=== PATIENT | male | born 1960 | race Caucasian/White ===

== ENCOUNTER 2021-01-30 19:18 | Inpatient (IN) ==
[2021-01-30] MEDS ORDERED: SODIUM CHLORIDE 0.9% 1000ML 2,000 ML IV ONE (19:26)
[2021-01-30] MEDS ORDERED: OPTIRAY 350 500ml IV ONE (19:46)
[2021-01-30 19:47] LABS: Hematocrit (blood only) 41.4 % (42-52); Hemoglobin 14.4 g/dL (14.0-18.0); Mean Corpuscular Hgb Conc 34.8 g/dL (32-36); Mean Corpuscular Volume 86.3 fL (80-100); Mean Platelet Volume 10.2 fL (7.4-10.4); Platelet Count 272 K/uL (130-400); RDW Coefficient of Variation 12.6 % (11.5-14.5); RDW Standard Deviation 40.3 fL (36.4-46.3); White Blood Count 7.33 K/uL (4.8-10.8)
[2021-01-30 19:58] LABS: Base Excess VBG -3.8 mEq/L; Oxygen Saturation VBG 77.4 %; pH VBG 7.4 (7.36-7.41)
[2021-01-30 20:02] LABS: INR 1.1 (0.9-1.1); Partial Thromboplastin Ratio 0.8; Prothrombin Time 11.4 Seconds (9.0-12.0)
--- NOTE | 2021-01-30 20:04 | CT Scan Report ---
CT OF THE HEAD WITHOUT CONTRAST CLINICAL HISTORY: syncope hit head COMPARISON STUDY: No previous studies for comparison. TECHNIQUE: Helical axial images of the head were obtained without IV contrast. Automated exposure con trol was utilized for the study. A dose lowering technique was utilized adhering to the principles o f ALARA. FINDINGS: No acute intracranial hemorrhage, midline shift or mass effect is present. The ventricular system is unremarkable. The basal cisterns are patent. No extra-axial collections are present. There are no findings to suggest acute dural sinus thrombosis or acute territorial infarct. No significant calvarial abnormalities are present. Mild ethmoid sinus mucosal thickening is noted. There is a proba ble incomplete arch of C1, incompletely imaged on this exam. IMPRESSION: 1. No acute intracranial findings. 2. No calvarial fracture. ACT 112: Negative or not required by law. Electronically signed by: Harinder Gaviria M.D. 01/30/2021 8:03 PM
--- NOTE | 2021-01-30 20:09 | Emergency Department Note ---
History of Present Illness General Chief complaint: Unresponsive Stated complaint: unresponsive Source: patient and family () History of Present Illness Provider complaint: Unresponsive episode Onset (ago): hour(s) 1 Location: head Associated symptoms: + confusion, + headaches and + syncope; no chest pain, no diaphoresis, no fever/chills, no nausea/vomiting and no shortness of breath 60-year-old male presents emergency department with for unresponsive episode. states that the patient was at a graduation [employer] for their son. She states that approxi-1 hour ago the patient was having his second alcoholic beer of the evening when he suddenly became very thirsty and then passed out. The patient's states that the patient he did hit his head. The states that in route to the hospital he passed out again. Patient is not on any blood thinners. Patient has no cardiac history. No history of seizure disorder. The patient's states that this happened once before when they were in [place] and he had a multitude of tests done including EEG and tomorrow cardiac cath which were negative. Home Medications Medication Instructions Recorded Confirmed Type multivitamin 1 tab PO DAILY 01/30/21 01/30/21 History psyllium husk [Metamucil] 1 tsp PO DAILY 01/30/21 01/30/21 History Allergies Allergy/AdvReac Type Severity Reaction Status Date / Time No Known Allergies Allergy Verified 01/30/21 20:01 Past Med/Surg History Medical History (Updated 01/30/21 @ 21:58 by Edgar Pace) HLD (hyperlipidemia) No pertinent family history Surgical History (Updated 01/30/21 @ 20:08 by Edgar Pace) No pertinent past surgical history Social History Preferred Language: Greek Feels Safe at Home: Yes Review of Systems A total of 10 systems reviewed and were otherwise negative Physical Exam Vital Signs Vital Signs - 24 hr 01/30/21 19:28 01/30/21 19:30 01/30/21 20:00 Temperature 36.2 C L Temperature Source Oral Pulse Rate 92 H 79 87 Pulse Rate from SpO2 Sensor 79 87 Pulse Rhythm Regular Pulse Strength Normal Respiratory Rate 18 19 15 Respiratory Effort / Characteristics Non-Labored Spontaneous Respiratory Depth Normal Respiratory Pattern Regular Blood Pressure 124/64 123/78 128/74 Blood Pressure Mean 84 93 92 Blood Pressure Position Lying Pulse Oximetry 93 96 95 Oxygen Delivery Method Room Air Room Air Room Air Sepsis Recent Fever Within 48 Hours No Sepsis New/Unexplained Change in Mental Status Yes Sepsis Action Taken by Nursing No Action Required 01/30/21 20:19 01/30/21 20:20 01/30/21 20:30 Temperature 36.7 C Temperature Source Oral Pulse Rate 99 H 92 H Pulse Rate from SpO2 Sensor 98 H 92 H Pulse Rhythm Pulse Strength Respiratory Rate 14 15 Respiratory Effort / Characteristics Respiratory Depth Respiratory Pattern Blood Pressure 118/72 118/76 Blood Pressure Mean 87 90 Blood Pressure Position Pulse Oximetry 97 99 Oxygen Delivery Method Room Air Room Air Sepsis Recent Fever Within 48 Hours Sepsis New/Unexplained Change in Mental Status Sepsis Action Taken by Nursing 01/30/21 20:46 01/30/21 21:30 Temperature Temperature Source Pulse Rate 90 86 Pulse Rate from SpO2 Sensor 90 85 Pulse Rhythm Pulse Strength Respiratory Rate 17 16 Respiratory Effort / Characteristics Respiratory Depth Respiratory Pattern Blood Pressure 124/78 139/80 Blood Pressure Mean 93 99 Blood Pressure Position Pulse Oximetry 98 94 Oxygen Delivery Method Sepsis Recent Fever Within 48 Hours Sepsis New/Unexplained Change in Mental Status Sepsis Action Taken by Nursing Physical Exam GENERAL: He is oriented to person, place, and time. He appears well-developed and well-nourished. He does not appear distressed. HENT: Exam performed. - Head: Normocephalic and atraumatic. - Right Ear: External ear normal. No mastoid tenderness. - Left Ear: External ear normal. No mastoid tenderness. - Mouth/Throat: The oropharynx is clear and moist. No trismus in the jaw. No dental abscesses or uvula swelling. No oropharyngeal exudate or tonsillar abscesses. EYES: Conjunctivae and EOM are normal. Pupils are equal, round, and reactive to light. Right eye exhibits no discharge. Left eye exhibits no discharge. No scleral icterus. NECK: Normal range of motion. Neck supple. No JVD present. No spinous process tenderness present. No carotid bruit present. No rigidity. No tracheal deviation and normal range of motion present. No Brudzinski's sign and no Kernig's sign noted. CV: Normal rate, regular rhythm, normal heart sounds and intact distal pulses. There is no peripheral edema. Palpable radial pulses bue. PULM/CHEST: Effort normal and breath sounds normal. No respiratory distress. No stridor. He has no wheezes. He has no rales. - Chest Wall: He exhibits no tenderness. ABD: The abdomen is soft. Bowel sounds are normal. He has no distension. No mass is present. There is no tenderness. There is no rebound, no guarding, no Leon's sign and no tenderness at McBurney's point. Rovsig negative. MUSC/SKEL: Normal range of motion. There is no peripheral edema, tenderness or deformity. LYMPH: No cervical adenopathy. NEURO: He is alert and oriented to person, place, and time. He has normal strength. No cranial nerve deficit or sensory deficit. Coordination and gait normal. GCS eye subscore is 4. GCS verbal subscore is 5. GCS motor subscore is 6. Cerebellar tests wnl. SKIN: Skin is warm and dry. He is not diaphoretic. PSYCH: He has a normal mood and affect. Behavior is normal. Judgment and thought content normal. Course Course 1914: Received a call from EMS stating that the patient came in with 2 syncopal episodes. Per EMS the patient's blood pressure was in the systolic 50s. IV fluids were ordered to be administered by EMS. 1917: The patient was evaluated in room A1. A complete history and physical exam was performed Cardiac monitoring: An order was placed for continuous cardiac monitoring. The monitor shows a rate of 90 with sinus rhythm E fast negative. Patient's blood pressure stable. 2 L IV fluid started on the patient. 2150: Vital signs stable. Labs show a potassium of 3.2. Potassium replaced in the emergency department. Lactic acid is elevated at 4.3. Patient is afebrile with no leukocytosis. Is not thought that the patient is suffering from any infection. Given the patient's symptoms it is thought that he could be suffering from a seizure. Imaging within normal limits. mentioned that the patient has been worked up for MS in the past. I discussed the case with the [facility] hospitalist Dr. Patel and her team. Her team was able to access the records from [facility]. Approximately 5 years ago, the patient had a similar episode of syncope and had an MRI done which showed possible lesions concerning for MS. The patient was eventually cleared of having MS however the notes stated that if the patient had further neurological symptoms that a repeat MRI and MRIs should be reconsidered. We will admit the patient to the [facility]. I did discuss the plan with the patient and his at bedside who are in agreement to be admitted. Administered Medications Discontinued Medications Sodium Chloride (Nss 1000ml) 2,000 mls @ 999 mls/hr IV .Q2H1M ONE Stop: 01/30/21 21:26 Last Admin: 01/30/21 19:30 Dose: 999 mls/hr Documented by: [id number] Ioversol (Optiray 350 500ml) 124 ml IV ONCE ONE Stop: 01/30/21 19:47 Last Admin: 01/30/21 19:48 Dose: 124 ml Documented by: [id number] Ondansetron HCl (Ondansetron Inj 2 Mg/Ml 2 Ml Vial) 4 mg IV NOW STA Stop: 01/30/21 20:24 Last Admin: 01/30/21 20:31 Dose: 4 mg Documented by: [id number] Medical Decision Making Laboratory Data Result diagrams: 01/30/21 19:20 01/30/21 19:20 Lab Results 01/30/21 01/30/21 01/30/21 Range/Units 19:00 19:20 19:20 WBC 7.33 (4.8-10.8) K/uL RBC 4.80 (4.7-6.1) M/uL Hgb 14.4 (14.0-18.0) g/dL Hct 41.4 L (42-52) % MCV 86.3 (80-100) fL MCH 30.0 (25-34) pg MCHC 34.8 (32-36) g/dL RDW Std Deviation 40.3 (36.4-46.3) fL RDW Coeff of Debo 12.6 (11.5-14.5) % Plt Count 272 (130-400) K/uL MPV 10.2 (7.4-10.4) fL Immature Gran % (Auto) 0.3 % Neut % (Auto) 40.4 % Lymph % (Auto) 54.4 % [place] % (Auto) 4.5 % Eos % (Auto) 0.3 % Baso % (Auto) 0.1 % Neut # (Auto) 2.96 (1.4-6.5) K/uL Lymph # (Auto) 3.99 H (1.2-3.4) K/uL [place] # (Auto) 0.33 (0.11-0.59) K/uL Eos # (Auto) 0.02 (0-0.5) K/uL Baso # (Auto) 0.01 (0-0.2) K/uL Immature Gran # (Auto) 0.02 (0.00-0.02) K/uL Echinocytes 1+ PT 11.4 (9.0-12.0) Seconds INR 1.1 (0.9-1.1) APTT 22.0 (21.0-31.0) Seconds PTT Ratio 0.8 VBG pH (7.36-7.41) VBG pCO2 (38-50) mmHg VBG pO2 mmHg VBG HCO3 mmol/L VBG O2 Saturation % VBG Base Excess mEq/L Barometric Pressure mm/Hg Sodium (136-145) mmol/L Potassium (3.5-5.1) mmol/L Chloride (98-107) mmol/L Carbon Dioxide (21-32) mmol/L Anion Gap (3-11) BUN (7-18) mg/dl Creatinine (0.6-1.4) mg/dl Est Cr Clr Drug Dosing ml/min Est GFR ( Amer) Est GFR (Non-Af Amer) BUN/Creatinine Ratio (10-20) Glucose (70-99) mg/dl Lactate (0.4-2.0) mmol/L Calcium (8.5-10.1) mg/dl Total Bilirubin (0.2-1) mg/dl Direct Bilirubin (0-0.2) mg/dl AST (15-37) U/L ALT (12-78) U/L Alkaline Phosphatase (45-117) U/L Troponin I (0-0.045) ng/ml Total Protein (6.4-8.2) gm/dl Albumin (3.4-5.0) gm/dl Lipase (73-393) U/L Procalcitonin < 0.05 (0-0.5) ng/ml Urine Opiates Screen (Neg) Ur Methadone, Qual (Neg) Urine Barbiturates (Neg) Ur Phencyclidine (PCP) (Neg) U Amphetamin/Meth Scrn (Neg) MDMA (Ecstasy) Screen (Neg) U Benzodiazepines Scrn (Neg) Ur Cocaine Metabolite (Neg) U Marijuana (THC) Screen (Neg) Ethyl Alcohol mg/dL (0-3) mg/dl COVID-19 Eval Order 01/30/21 01/30/21 01/30/21 Range/Units 19:20 19:20 19:27 WBC (4.8-10.8) K/uL RBC (4.7-6.1) M/uL Hgb (14.0-18.0) g/dL Hct (42-52) % MCV (80-100) fL MCH (25-34) pg MCHC (32-36) g/dL RDW Std Deviation (36.4-46.3) fL RDW Coeff of Debo (11.5-14.5) % Plt Count (130-400) K/uL MPV (7.4-10.4) fL Immature Gran % (Auto) % Neut % (Auto) % Lymph % (Auto) % [place] % (Auto) % Eos % (Auto) % Baso % (Auto) % Neut # (Auto) (1.4-6.5) K/uL Lymph # (Auto) (1.2-3.4) K/uL [place] # (Auto) (0.11-0.59) K/uL Eos # (Auto) (0-0.5) K/uL Baso # (Auto) (0-0.2) K/uL Immature Gran # (Auto) (0.00-0.02) K/uL Echinocytes PT (9.0-12.0) Seconds INR (0.9-1.1) APTT (21.0-31.0) Seconds PTT Ratio VBG pH (7.36-7.41) VBG pCO2 (38-50) mmHg VBG pO2 mmHg VBG HCO3 mmol/L VBG O2 Saturation % VBG Base Excess mEq/L Barometric Pressure mm/Hg Sodium 142 (136-145) mmol/L Potassium 3.2 L (3.5-5.1) mmol/L Chloride 109 H (98-107) mmol/L Carbon Dioxide 25 (21-32) mmol/L Anion Gap 8.0 (3-11) BUN 19 H (7-18) mg/dl Creatinine 1.14 (0.6-1.4) mg/dl Est Cr Clr Drug Dosing 81.8 ml/min Est GFR ( Amer) 81.1 Est GFR (Non-Af Amer) 70.0 BUN/Creatinine Ratio 16.8 (10-20) Glucose 162 H (70-99) mg/dl Lactate 4.3 H* (0.4-2.0) mmol/L Calcium 8.6 (8.5-10.1) mg/dl Total Bilirubin 0.2 (0.2-1) mg/dl Direct Bilirubin < 0.1 (0-0.2) mg/dl AST 18 (15-37) U/L ALT 29 (12-78) U/L Alkaline Phosphatase 68 (45-117) U/L Troponin I < 0.015 (0-0.045) ng/ml Total Protein 7.2 (6.4-8.2) gm/dl Albumin 3.6 (3.4-5.0) gm/dl Lipase 172 (73-393) U/L Procalcitonin (0-0.5) ng/ml Urine Opiates Screen (Neg) Ur Methadone, Qual (Neg) Urine Barbiturates (Neg) Ur Phencyclidine (PCP) (Neg) U Amphetamin/Meth Scrn (Neg) MDMA (Ecstasy) Screen (Neg) U Benzodiazepines Scrn (Neg) Ur Cocaine Metabolite (Neg) U Marijuana (THC) Screen (Neg) Ethyl Alcohol mg/dL 20.0 H (0-3) mg/dl COVID-19 Eval Order 01/30/21 01/30/21 01/30/21 Range/Units 19:35 19:35 21:40 WBC (4.8-10.8) K/uL RBC (4.7-6.1) M/uL Hgb (14.0-18.0) g/dL Hct (42-52) % MCV (80-100) fL MCH (25-34) pg MCHC (32-36) g/dL RDW Std Deviation (36.4-46.3) fL RDW Coeff of Debo (11.5-14.5) % Plt Count (130-400) K/uL MPV (7.4-10.4) fL Immature Gran % (Auto) % Neut % (Auto) % Lymph % (Auto) % [place] % (Auto) % Eos % (Auto) % Baso % (Auto) % Neut # (Auto) (1.4-6.5) K/uL Lymph # (Auto) (1.2-3.4) K/uL [place] # (Auto) (0.11-0.59) K/uL Eos # (Auto) (0-0.5) K/uL Baso # (Auto) (0-0.2) K/uL Immature Gran # (Auto) (0.00-0.02) K/uL Echinocytes PT (9.0-12.0) Seconds INR (0.9-1.1) APTT (21.0-31.0) Seconds PTT Ratio VBG pH 7.40 (7.36-7.41) VBG pCO2 33 L (38-50) mmHg VBG pO2 43 mmHg VBG HCO3 20 mmol/L VBG O2 Saturation 77.4 % VBG Base Excess -3.8 mEq/L Barometric Pressure 730.8 mm/Hg Sodium (136-145) mmol/L Potassium (3.5-5.1) mmol/L Chloride (98-107) mmol/L Carbon Dioxide (21-32) mmol/L Anion Gap (3-11) BUN (7-18) mg/dl Creatinine (0.6-1.4) mg/dl Est Cr Clr Drug Dosing ml/min Est GFR ( Amer) Est GFR (Non-Af Amer) BUN/Creatinine Ratio (10-20) Glucose (70-99) mg/dl Lactate (0.4-2.0) mmol/L Calcium (8.5-10.1) mg/dl Total Bilirubin (0.2-1) mg/dl Direct Bilirubin (0-0.2) mg/dl AST (15-37) U/L ALT (12-78) U/L Alkaline Phosphatase (45-117) U/L Troponin I (0-0.045) ng/ml Total Protein (6.4-8.2) gm/dl Albumin (3.4-5.0) gm/dl Lipase (73-393) U/L Procalcitonin (0-0.5) ng/ml Urine Opiates Screen Neg (Neg) Ur Methadone, Qual Neg (Neg) Urine Barbiturates Neg (Neg) Ur Phencyclidine (PCP) Neg (Neg) U Amphetamin/Meth Scrn Neg (Neg) MDMA (Ecstasy) Screen Neg (Neg) U Benzodiazepines Scrn Neg (Neg) Ur Cocaine Metabolite Neg (Neg) U Marijuana (THC) Screen Neg (Neg) Ethyl Alcohol mg/dL (0-3) mg/dl COVID-19 Eval Order [facility]FluRsv at [facility] Imaging Data Radiologist's Impression: Abdomen/Pelvis CTA 01/30/21 19:26 CT ANGIOGRAPHY OF THE ABDOMEN AND PELVIS CLINICAL HISTORY: Abdominal pain. Syncope. Evaluate for dissection. COMPARISON STUDY: No previous studies for comparison. TECHNIQUE: Helical axial images of the abdomen and pelvis were obtained during arterial phase following intravenous injection of 124 cc Optiray 320 IV. Sagittal and coronal reconstructions were viewed as well as maximal intensity p rojections on an independent 3-D workstation. Automated exposure control was utilized for the study. A dose lowering technique was utilized adhering to the principles of ALARA. FINDINGS: No pneumatosis, free air or portal venous gas is present. Stomach is distended with ingested contents. Arterial phase images of the liver, spleen, adrenal glands, kidneys and pancreas are unremarkable. There is no biliary or pancreatic ductal dilatation. There is no peripancreatic or pericholecystic infiltration. There is no hydronephrosis. The appendix is normal. There is a moderate amount of stool within the colon and rectum. There is no evidence for a bowel obstruction. No ascites is present. There is no lymphadenopathy. The caliber of the abdominal aorta is normal. There is minimal atherosclerotic plaque of the abdominal aorta as well as the branch vessels. There is no diss ection. The branch vessels are patent. Small fat-containing bilateral inguinal hernias are present. IMPRESSION: 1. Normal caliber abdominal aorta. Mild atherosclerotic plaque. No dissection. Patent vessels. 2. No acute process within the abdomen or pelvis on arterial phase exam. 3. Moderate amount of stool within the colon and rectum. No bowel obstruction. No bowel wall thickening. 4. Distended stomach containing ingested contents. ACT 112: Negative or not required by law. Electronically signed by: Harinder Gaviria M.D. 01/30/2021 8:18 PM Chest CTA 01/30/21 19:26 CT ANGIOGRAPHY OF THE CHEST DISSECTION PROTOCOL CLINICAL HISTORY: Syncope. Evaluate for dissection. COMPARISON STUDY: No previous studies for comparison. TECHNIQUE: Before and following the IV administration of 124 mL of Optiray, h elical axial images of the chest were obtained. Maximal intensity projections and sagittal and coronal reformats were viewed on an independent 3D workstation. IV contrast was administered without complication. Automated exposure control was utilized for the study. A dose lowering technique was utilized adhering to the principles of ALARA. CT DOSE: 3266.10 mGy.cm FINDINGS: Caliber of the thoracic aorta is normal. There is no intramural thaddeus efraín or thoracic aortic dissection. Cardiac size is at the upper limits of normal. No enlarged thoracic lymph nodes are noted. There are several calcified mediastinal and right hilar lymph nodes. No central pulmonary embolus is noted. There is no consolidation to suggest pneumonia. No pneumothorax or pleural effusion is noted. Abdomen and pelvis will be reported separately. IMPRESSION: 1. No thoracic aortic dissection. 2. No acute process within the chest. ACT 112: Negative or not required by law. Electronically signed by: Harinder Gaviria M.D. 01/30/2021 8:[address] 01/30/21 19:27 CT OF THE HEAD WITHOUT CONTRAST CLINICAL HISTORY: syncope hit head COMPARISON STUDY: No previous studies for comparison. TECHNIQUE: Helical axial images of the head were obtained without IV contrast. Automated exposure control was utilized for the study. A dose lowering technique was utilized adhering to the principles of ALARA. FINDINGS: No acute intracranial hemorrhage, midline shift or mass effect is present. The ventricular system is unremarkable. The basal cisterns are patent. No extra-axial collections are present. There are no findings to suggest acute dural sinus thrombosis or acute territorial infarct. No significant calvarial abnormalities are present. Mild ethmoid sinus mucosal thickening is noted. There is a probable incomplete arch of C1, incompletely imaged on this exam. IMPRESSION: 1. No acute intracranial findings. 2. No calvarial fracture. ACT 112: Negative or not required by law. Electronically signed by: Harinder Gaviria M.D. 01/30/2021 8:03 PM ECG Data Indication: + altered mental status Rate (beats per minute): 77 Rhythm: + normal sinus ECG Intervals/blocks: + Normal QRS, + Normal GA and + Normal QT-c ECG ST segments: + Normal ST segments MDM Narrative 1914: Received a call from EMS stating that the patient came in with 2 syncopal episodes. Per EMS the patient's blood pressure was in the systolic 50s. IV fluids were ordered to be administered by EMS. 1917: The patient was evaluated in room A1. A complete history and physical exam was performed Cardiac monitoring: An order was placed for continuous cardiac monitoring. The monitor shows a rate of 90 with sinus rhythm E fast negative. Patient's blood pressure stable. 2 L IV fluid started on the patient. 2150: Vital signs stable. Labs show a potassium of 3.2. Potassium replaced in the emergency department. Lactic acid is elevated at 4.3. Patient is afebrile with no leukocytosis. Is not thought that the patient is suffering from any infection. Given the patient's symptoms it is thought that he could be sufferin g from a seizure. Imaging within normal limits. mentioned that the patient has been worked up for MS in the past. I discussed the case with the [facility] hospitalist Dr. Patel and her team. Her team was able to access the records from [facility]. Approximately 5 years ago, the patient had a similar episode of syncope and had an MRI done which showed possible lesions concerning for MS. The patient was eventually cleared of having MS however the notes stated that if the patient had further neurological symptoms that a repeat MRI and MRIs should be reconsidered. We will admit the patient to the hospital tonight. I did discuss the plan with the patient and his at bedside who are in agreement to be admitted. Impression & Plan Syncope, Seizure-like activity, CHI (closed head injury) Discharge Plan Visit Data Chief Complaint: Unresponsive Stated Complaint: unresponsive ED Provider: Edgar Pace Discharge Problem: Syncope, Seizure-like activity, CHI (closed head injury) Patient Disposition: Being Evaluated by Hospitalist Forms Stand Alone Forms: [facility] Prescriptions Prescriptions: No Action multivitamin Tablet 1 tab PO DAILY RF: 0 Metamucil 3.4 gram/5.4 gram Powder 1 tsp PO DAILY RF: 0 Referrals Referrals: SOREN MOLINA [Other] Discharge Problem: Syncope Qualifiers: Syncope type: unspecified Qualified Code(s): R55 - Syncope and collapse CHI (closed head injury) Qualifiers: Encounter type: initial encounter Qualified Code(s): S09.90XA - Unspecified injury of head, initial encounter
[2021-01-30 20:13] LABS: Alanine Aminotransferase 29 U/L (12-78); Albumin Level 3.6 gm/dl (3.4-5.0); BUN Creatinine Ratio 16.8 (10-20); Bilirubin Direct < 0.1 mg/dl (0-0.2); Blood Urea Nitrogen 19 mg/dl (7-18); Calcium 8.6 mg/dl (8.5-10.1); Carbon Dioxide 25 mmol/L (21-32); Chloride 109 mmol/L (98-107); Creatinine Clr Calc Pharmacy 81.8 ml/min; Est GFR (African American) 81.1; Glucose 162 mg/dl (70-99); Lipase 172 U/L (73-393); Potassium 3.2 mmol/L (3.5-5.1); Sodium 142 mmol/L (136-145)
--- NOTE | 2021-01-30 20:14 | CT Scan Report ---
CT ANGIOGRAPHY OF THE CHEST DISSECTION PROTOCOL CLINICAL HISTORY: Syncope. Evaluate for dissection. COMPARISON STUDY: No previous studies for comparison. TECHNIQUE: Before and following the IV administration of 124 mL of Optiray, helical axial images of t he chest were obtained. Maximal intensity projections and sagittal and coronal reformats were viewed on an independent 3D workstation. IV contrast was administered without complication. Automated exp osure control was utilized for the study. A dose lowering technique was utilized adhering to the saul Frankel. CT DOSE: 3266.10 mGy.cm FINDINGS: Caliber of the thoracic aorta is normal. There is no intramural hematoma or thoracic aorti c dissection. Cardiac size is at the upper limits of normal. No enlarged thoracic lymph nodes are not ed. There are several calcified mediastinal and right hilar lymph nodes. No central pulmonary embolus is noted. There is no consolidation to suggest pneumonia. No pneumothorax or pleural effusion is not ed. Abdomen and pelvis will be reported separately. IMPRESSION: 1. No thoracic aortic dissection. 2. No acute process within the chest. ACT 112: Negative or not required by law. Electronically signed by: Harinder Gaviria M.D. 01/30/2021 8:12 PM
[2021-01-30 20:18] LABS: Alkaline Phosphatase 68 U/L (45-117); Aspartate Aminotransferase 18 U/L (15-37); Bilirubin,Total 0.2 mg/dl (0.2-1); Total Protein 7.2 gm/dl (6.4-8.2); Troponin I < 0.015 ng/ml (0-0.045)
--- NOTE | 2021-01-30 20:20 | CT Scan Report ---
CT ANGIOGRAPHY OF THE ABDOMEN AND PELVIS CLINICAL HISTORY: Abdominal pain. Syncope. Evaluate for dissection. COMPARISON STUDY: No previous studies for comparison. TECHNIQUE: Helical axial images of the abdomen and pelvis were obtained during arterial phase followi ng intravenous injection of 124 cc Optiray 320 IV. Sagittal and coronal reconstructions were viewed a s well as maximal intensity projections on an independent 3-D workstation. Automated exposure control was utilized for the study. A dose lowering technique was utilized adhering to the principles of [place] JERRY. FINDINGS: No pneumatosis, free air or portal venous gas is present. Stomach is distended with ingeste d contents. Arterial phase images of the liver, spleen, adrenal glands, kidneys and pancreas are unre markable. There is no biliary or pancreatic ductal dilatation. There is no peripancreatic or perichol ecystic infiltration. There is no hydronephrosis. The appendix is normal. There is a moderate amount of stool within the colon and rectum. There is no evidence for a bowel obstruction. No ascites is pre sent. There is no lymphadenopathy. The caliber of the abdominal aorta is normal. There is minimal ath erosclerotic plaque of the abdominal aorta as well as the branch vessels. There is no dissection. The branch vessels are patent. Small fat-containing bilateral inguinal hernias are present. IMPRESSION: 1. Normal caliber abdominal aorta. Mild atherosclerotic plaque. No dissection. Patent vessels. 2. No acute process within the abdomen or pelvis on arterial phase exam. 3. Moderate amount of stool within the colon and rectum. No bowel obstruction. No bowel wall thickeni ng. 4. Distended stomach containing ingested contents. ACT 112: Negative or not required by law. Electronically signed by: Harinder Gaviria M.D. 01/30/2021 8:18 PM
[2021-01-30] MEDS ORDERED: ONDANSETRON INJ 2 MG/ML 2 ML VIAL IV STA (20:23)
[2021-01-30 20:24] LABS: Amphetamines+Metham, Urine Neg (Neg); Barbiturates, Urine Neg (Neg); Benzodiazepine, Urine Neg (Neg); Cocaine, Urine Neg (Neg); MDMA (Ecstacy), Urine Neg (Neg); Methadone, Urine Neg (Neg); Opiate, Urine Neg (Neg); Phencyclidine, Urine Neg (Neg)
[2021-01-30 20:33] LABS: Basophils # (auto) 0.01 K/uL (0-0.2); Basophils % (auto) 0.1 %; Echinocytes 1+; Eosinophils # (auto) 0.02 K/uL (0-0.5); Eosinophils % (auto) 0.3 %; Immature Granulocytes # (auto) 0.02 K/uL (0.00-0.02); Immature Granulocytes % (auto) 0.3 %; Lymphocytes # (auto) 3.99 K/uL (1.2-3.4); Lymphocytes % (auto) 54.4 %; Monocytes # (auto) 0.33 K/uL (0.11-0.59); Monocytes % (auto) 4.5 %; Neutrophils # (auto) 2.96 K/uL (1.4-6.5); Neutrophils % (auto) 40.4 %
[2021-01-30] MEDS ORDERED: POTASSIUM CHLORIDE 10 MEQ TABCR PO STA (21:51)
--- NOTE | 2021-01-30 22:15 | History & Physical Report ---
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 He is now hemodynamically stable. 1. Syncopal episode Clinically, patient reported being at dinner and was sitting down when he began feeling dizzy and extremely thirsty; thereafter lost consciousness and hit his head (while standing) Patient noted to have a very similar episode in approximately 2014 that occurred in [place] Work-up as follows: Upon EMS arrival, was found to be profoundly hypotensive with systolics in the 50s; upon his arrival to the ED, his systolics were noted in the 70s. Head CT without acute intracranial process Chest CTA and abdominal pelvic CTA without focal or vascular abnormalities CBC without anemia BMP notable for mild hypokalemia to 3.2 Lactate noted at 2.5 in setting of profound hypotension ECG revealing of NSR, but nonspecific ST changes in the inferolateral leads Troponin upon arrival under 0.015 Serum alcohol level 20, otherwise UDS unremarkable Multiple cerebral demyelinating lesions per 2016 MRI, as below, and vicinities consistent with radiologic MS Etiology at this time is not clear, but differential includes profound vagal response, dysautonomia potentially secondary to progressing MS, cardiogenic etiology, vascular insufficiency MRI brain with and without contrast, MS protocol given known history of demyelinating lesions Consult neurology, as below Trend troponin --in setting of profound hypotension, certainly this may return elevated to some degree Bilateral carotid duplex to rule out insufficiency A.m. cortisol given profound hypotension Patient has son's graduation at 6 PM tomorrow Continuous cardiac monitoring 2. Hypotension -- resolved at present Patient found to have systolics within the 50 range upon EMS arrival; SBP in 70s upon arrival to the hospital after fluid bolus Received total of 3 L of normal saline with return to normotension CTA chest, abdominal/pelvis unrevealing for acute vascular process or hemorrhage As above, etiology of this remains somewhat unclear: May represent vasovagal response, dysautonomia, cardiogenic source Nontoxic appearing, afebrile, no leukocytosis, recent illnesses on history Continue to monitor while here, work-up as above Echo, continuous cardiac monitoring as above Consider 1 L fluid boluses as needed for pressures under 90/60 or MAP under 65 3. Cerebral demyelinating lesions During work-up for syncopal episode in 2014, patient did undergo MRI of the brain, which showed multiple demyelinating lesions within the cerebrum -- "multiple ovoid shaped FLAIR hyperintense white matter lesions throughout the supratentorial brain, predominantly involving the callosal/pericallosal, juxtacortical, and periventricular regions. The lesions are unchanged in size and number since 07/09/2015. No abnormal enhancement. No restricted diffusion. No intraparenchymal hemorrhage." // Previous neurologist remarked that there were 7-8 total demyelinating lesions at that time concerning for MS. Patient was followed by [facility] neurology for further work-up of this Unclear whether or not syncopal episode ,as above, may be related -- ?dysautonomia 2/2 progression of disease Repeat MRI Brain, MS Protocol, with and without contrast Consult neurology, as above Continue multivitamin, consider addition of biotin Code: Full code PPx: SCDs Diet: Regular Dispo: MedSurg with telemetry (2) CHI (closed head injury): (3) HLD (hyperlipidemia): (4) Demyelinating lesion: History of Present Illness Primary Care Provider: SOREN Jasmine is a 60-year-old male with a notable past medical history of multiple demyelinating cerebral lesions discovered after syncopal event in 2014 and hyperlipidemia who presents to [facility] following an episode of nonresponsiveness and hypotension that occurred while at a graduation constitution party for their son. Per patient and report, he was in his normal health up until this event. At the graduation constitution party, he had approximately 2 beers and was eating a steak sandwich. 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 He then passed out. Hit his head on the way down. When he did begin "coming out of it", notes that he did say that he was having trouble breathing. Although he is not completely able to recollect the story, he denies that there is any chest pain around this time. similar does not remember him saying anything about a pressure in his chest or pain. There is no evidence of generalized shaking or seizure-like activity. There is no tongue biting or loss of bowel or bladder control. Patient notes that there was nothing out of the ordinary that occurred today. He attended his son's graduation earlier in the afternoon. He continued to eat and consume liquids as he normally does. He denies any illness like symptoms occurring recently. Denies any new medications or use of illicit drugs. Upon EMS arrival, he he was noted to be more responsive, but with systolics in the 50s. Fluid was administered in route. In the ED, patient was found to be hypotensive to the systolic range of 70s over 50s. He was noted to have a hypokalemia to 3.2, but otherwise no significant electrolyte abnormalities. Ethyl alcohol level of 20. He was noted to have a lactate of 2.5 in the setting of this hypotension. No signs of anemia. Head CT and chest CTA without acute processes or vascular insult. Abdominal CTA similarly without acute processes. After an additional 2-3 fluid boluses, his blood pressures returned to the 120/80 range. Of note, patient has followed with [facility] neurology in the past. He was noted to have a syncopal event in December 2014, where after a brain MRI was obtained; his neurologist remarked that there were 7-8 demyelinating lesions concerning for MS. 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 His last MRI in 2017 did demonstrate "multiple ovoid shaped FLAIR hyperintense white matter lesions throughout the supratentorial brain, predominantly involving the callosal/pericallosal, juxtacortical, and periventricular regions. The lesions are unchanged in size and number since 07/09/2015. No abnormal enhancement. No restricted diffusion. No intraparenchymal hemorrhage." Further, patient's does report that when they lived in [place], he underwent an extensive cardiac/neurologic work-up for evaluation of the syncopeincluding EEG, cardiac catheterization, and more, which she recollects were negative. Over the last several years, and he denies any major changes in his health. Notes that he has begun using readers over the past year, but denies any change in color perception or acuity. He denies any sudden periods of weakness in his arms or his legs, or focally from a general perspective. He does endorse bilateral numbness on the heels of his feet which has been there for over 2 years; it is most present when walking around. He denies any significant family history of neurologic disease. He did note that his brother recently from a stroke at the age of 68. He knows that both of his parents had heart disease. Denies any rheumatologic diseases in the family, such as lupus, rheumatoid arthritis, IBD. Allergies Allergy/AdvReac Type Severity Reaction Status Date / Time No Known Allergies Allergy Verified 01/30/21 20:01 Home Medications Medication Instructions Recorded Confirmed Type multivitamin 1 tab PO DAILY 01/30/21 01/30/21 History psyllium husk [Metamucil] 1 tsp PO DAILY 01/30/21 01/30/21 History Past Med/Surg History Medical History Demyelinating lesion His last MRI in 2017 via [facility] did demonstrate "multiple ovoid shaped FLAIR hyperintense white matter lesions throughout the supratentorial brain, predominantly involving the callosal/pericallosal, juxtacortical, and periventricular regions. The lesions are unchanged in size and number since 07/09/2015. No abnormal enhancement. No restricted diffusion. No intraparenchymal hemorrhage." Impression by neurologist was 7-8 of these in total. HLD (hyperlipidemia) No pertinent family history Syncope Surgical History No pertinent past surgical history Social History Smoking Status: Never smoker Hx Alcohol Use: Yes Hx Substance Use: No Preferred Language: Urdu Communication Ability: Effective Beliefs That Will Affect Care: [facility] Current Living Situation: Spouse Feels Safe at Home: Yes Safety Concerns: Feels Safe At This Time Assistive Devices: None Review of Systems Review of Systems: As per HPI Physical Exam Physical Exam: General: 60 year old male who is alert, oriented, and appears in no acute distress. at bedside. HEENT: NCAT. Eyes - Sclera are white, anicteric, and without injection. PERRL. EOMs display full ROM bilaterally. Mouth - MMM with no tonsillar edema or exudates. Neck - supple and without LAD. No JVD. Cardiac: Normal rate and regular rhythm; S1 and S2 present with no murmurs, rubs, or gallops. No carotid bruits. No peripheral edema. Pulmonary: Good respiratory effort with symmetric expansion of the chest. No use of accessory muscles. 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 Abdominal: Normoactive bowel sounds. Abdomen was soft, nondistended, and non- tender to palpation. Neuro: - Cranial Nerves: CN I, IX, and X - not assessed. II - PERRL. III/IV/ - EOMs WNL. No nystagmus. V - Facial sensation in tact in all three divisions; jaw opening WNL. VII - Patient is able to smile symmetrically and keep eyes close against resistance. VIII - Patient is able to hear finger snapping equally and appropriately. Patient is able to rotate head and shrug shoulders against resistance. XI - Soft palate raises equally and appropriately while saying "ah." XII - patient is able to stick out tongue and deviate from [id number] appropriately. - Motor: UE - Finger, wrist, elbow, and shoulder strength is 5/5 bilaterally. LE - Hip, knee, and ankle strength is 5/5 bilaterally. - Sensation: UE and LE sensation to light touch is grossly intact bilaterally. - Reflexes - Biceps 2+ b/l; brachioradialis 2+ b/l; patellar 2+ b/l; Achilles 2+ b/l. No clonus. - [id number]: WNL b/l. No dysmetria. [id number]; WNL b/l. Extremities: Upper and lower extremities are warm and well perfused. Radial and dorsalis pedis pulses were 2+ b/l. Capillary refill assessed in UE was < 3 sec. Psych: Well-developed, well-nourished, appropriately dressed for occasion. Behavior is cooperative and appropriate. Affect is WNL. Insight is appropriate. Results & Data Results & Data ([facility]) Vital Signs (Past 12 Hours) Vital Signs Temp Pulse Resp BP Pulse Ox 01/30/21 21:30 86 16 139/80 94 01/30/21 20:46 90 17 124/78 98 05/06/21 20:30 92 H 15 118/76 99 01/30/21 20:20 36.7 C 01/30/21 20:19 99 H 14 118/72 97 01/30/21 20:00 87 15 128/74 95 01/30/21 19:30 79 19 123/78 96 01/30/21 19:28 36.2 C L 92 H 18 124/64 93 Laboratory Results Lab Results 01/30/21 01/30/21 01/30/21 Range/Units 19:00 19:20 19:20 WBC 7.33 (4.8-10.8) K/uL RBC 4.80 (4.7-6.1) M/uL Hgb 14.4 (14.0-18.0) g/dL Hct 41.4 L (42-52) % MCV 86.3 (80-100) fL MCH 30.0 (25-34) pg MCHC 34.8 (32-36) g/dL RDW Std Deviation 40.3 (36.4-46.3) fL RDW Coeff of Debo 12.6 (11.5-14.5) % Plt Count 272 (130-400) K/uL MPV 10.2 (7.4-10.4) fL Immature Gran % (Auto) 0.3 % Neut % (Auto) 40.4 % Lymph % (Auto) 54.4 % [place] % (Auto) 4.5 % Eos % (Auto) 0.3 % Baso % (Auto) 0.1 % Neut # (Auto) 2.96 (1.4-6.5) K/uL Lymph # (Auto) 3.99 H (1.2-3.4) K/uL [place] # (Auto) 0.33 (0.11-0.59) K/uL Eos # (Auto) 0.02 (0-0.5) K/uL Baso # (Auto) 0.01 (0-0.2) K/uL Immature Gran # (Auto) 0.02 (0.00-0.02) K/uL Echinocytes 1+ PT 11.4 (9.0-12.0) Seconds INR 1.1 (0.9-1.1) APTT 22.0 (21.0-31.0) Seconds PTT Ratio 0.8 VBG pH (7.36-7.41) VBG pCO2 (38-50) mmHg VBG pO2 mmHg VBG HCO3 mmol/L VBG O2 Saturation % VBG Base Excess mEq/L Barometric Pressure mm/Hg Sodium (136-145) mmol/L Potassium (3.5-5.1) mmol/L Chloride (98-107) mmol/L Carbon Dioxide (21-32) mmol/L Anion Gap (3-11) BUN (7-18) mg/dl Creatinine (0.6-1.4) mg/dl Est Cr Clr Drug Dosing ml/min Est GFR ( Amer) Est GFR (Non-Af Amer) BUN/Creatinine Ratio (10-20) Glucose (70-99) mg/dl Lactate (0.4-2.0) mmol/L Calcium (8.5-10.1) mg/dl Total Bilirubin (0.2-1) mg/dl Direct Bilirubin (0-0.2) mg/dl AST (15-37) U/L ALT (12-78) U/L Alkaline Phosphatase (45-117) U/L Troponin I (0-0.045) ng/ml Total Protein (6.4-8.2) gm/dl Albumin (3.4-5.0) gm/dl Lipase (73-393) U/L Procalcitonin < 0.05 (0-0.5) ng/ml Prolactin ng/ml Urine Opiates Screen (Neg) Ur Methadone, Qual (Neg) Urine Barbiturates (Neg) Ur Phencyclidine (PCP) (Neg) U Amphetamin/Meth Scrn (Neg) MDMA (Ecstasy) Screen (Neg) U Benzodiazepines Scrn (Neg) Ur Cocaine Metabolite (Neg) U Marijuana (THC) Screen (Neg) Ethyl Alcohol mg/dL (0-3) mg/dl COVID-19 Eval Order SARS-CoV-2 (PCR) (Negative) Influenza Type A (PCR) (Neg) Influenza Type B (PCR) (Neg) RSV (RT-PCR) (Neg) 01/30/21 01/30/21 01/30/21 Range/Units 19:20 19:20 19:20 WBC (4.8-10.8) K/uL RBC (4.7-6.1) M/uL Hgb (14.0-18.0) g/dL Hct (42-52) % MCV (80-100) fL MCH (25-34) pg MCHC (32-36) g/dL RDW Std Deviation (36.4-46.3) fL RDW Coeff of Debo (11.5-14.5) % Plt Count (130-400) K/uL MPV (7.4-10.4) fL Immature Gran % (Auto) % Neut % (Auto) % Lymph % (Auto) % [place] % (Auto) % Eos % (Auto) % Baso % (Auto) % Neut # (Auto) (1.4-6.5) K/uL Lymph # (Auto) (1.2-3.4) K/uL [place] # (Auto) (0.11-0.59) K/uL Eos # (Auto) (0-0.5) K/uL Baso # (Auto) (0-0.2) K/uL Immature Gran # (Auto) (0.00-0.02) K/uL Echinocytes PT (9.0-12.0) Seconds INR (0.9-1.1) APTT (21.0-31.0) Seconds PTT Ratio VBG pH (7.36-7.41) VBG pCO2 (38-50) mmHg VBG pO2 mmHg VBG HCO3 mmol/L VBG O2 Saturation % VBG Base Excess mEq/L Barometric Pressure mm/Hg Sodium 142 (136-145) mmol/L Potassium 3.2 L (3.5-5.1) mmol/L Chloride 109 H (98-107) mmol/L Carbon Dioxide 25 (21-32) mmol/L Anion Gap 8.0 (3-11) BUN 19 H (7-18) mg/dl Creatinine 1.14 (0.6-1.4) mg/dl Est Cr Clr Drug Dosing 81.8 ml/min Est GFR ( Amer) 81.1 Est GFR (Non-Af Amer) 70.0 BUN/Creatinine Ratio 16.8 (10-20) Glucose 162 H (70-99) mg/dl Lactate 4.3 H* (0.4-2.0) mmol/L Calcium 8.6 (8.5-10.1) mg/dl Total Bilirubin 0.2 (0.2-1) mg/dl Direct Bilirubin < 0.1 (0-0.2) mg/dl AST 18 (15-37) U/L ALT 29 (12-78) U/L Alkaline Phosphatase 68 (45-117) U/L Troponin I < 0.015 (0-0.045) ng/ml Total Protein 7.2 (6.4-8.2) gm/dl Albumin 3.6 (3.4-5.0) gm/dl Lipase 172 (73-393) U/L Procalcitonin (0-0.5) ng/ml Prolactin 48.16 ng/ml Urine Opiates Screen (Neg) Ur Methadone, Qual (Neg) Urine Barbiturates (Neg) Ur Phencyclidine (PCP) (Neg) U Amphetamin/Meth Scrn (Neg) MDMA (Ecstasy) Screen (Neg) U Benzodiazepines Scrn (Neg) Ur Cocaine Metabolite (Neg) U Marijuana (THC) Screen (Neg) Ethyl Alcohol mg/dL (0-3) mg/dl COVID-19 Eval Order SARS-CoV-2 (PCR) (Negative) Influenza Type A (PCR) (Neg) Influenza Type B (PCR) (Neg) RSV (RT-PCR) (Neg) 01/30/21 01/30/21 01/30/21 Range/Units 19:27 19:35 19:35 WBC (4.8-10.8) K/uL RBC (4.7-6.1) M/uL Hgb (14.0-18.0) g/dL Hct (42-52) % MCV (80-100) fL MCH (25-34) pg MCHC (32-36) g/dL RDW Std Deviation (36.4-46.3) fL RDW Coeff of Debo (11.5-14.5) % Plt Count (130-400) K/uL MPV (7.4-10.4) fL Immature Gran % (Auto) % Neut % (Auto) % Lymph % (Auto) % [place] % (Auto) % Eos % (Auto) % Baso % (Auto) % Neut # (Auto) (1.4-6.5) K/uL Lymph # (Auto) (1.2-3.4) K/uL [place] # (Auto) (0.11-0.59) K/uL Eos # (Auto) (0-0.5) K/uL Baso # (Auto) (0-0.2) K/uL Immature Gran # (Auto) (0.00-0.02) K/uL Echinocytes PT (9.0-12.0) Seconds INR (0.9-1.1) APTT (21.0-31.0) Seconds PTT Ratio VBG pH 7.40 (7.36-7.41) VBG pCO2 33 L (38-50) mmHg VBG pO2 43 mmHg VBG HCO3 20 mmol/L VBG O2 Saturation 77.4 % VBG Base Excess -3.8 mEq/L Barometric Pressure 730.8 mm/Hg Sodium (136-145) mmol/L Potassium (3.5-5.1) mmol/L Chloride (98-107) mmol/L Carbon Dioxide (21-32) mmol/L Anion Gap (3-11) BUN (7-18) mg/dl Creatinine (0.6-1.4) mg/dl Est Cr Clr Drug Dosing ml/min Est GFR ( Amer) Est GFR (Non-Af Amer) BUN/Creatinine Ratio (10-20) Glucose (70-99) mg/dl Lactate (0.4-2.0) mmol/L Calcium (8.5-10.1) mg/dl Total Bilirubin (0.2-1) mg/dl Direct Bilirubin (0-0.2) mg/dl AST (15-37) U/L ALT (12-78) U/L Alkaline Phosphatase (45-117) U/L Troponin I (0-0.045) ng/ml Total Protein (6.4-8.2) gm/dl Albumin (3.4-5.0) gm/dl Lipase (73-393) U/L Procalcitonin (0-0.5) ng/ml Prolactin ng/ml Urine Opiates Screen Neg (Neg) Ur Methadone, Qual Neg (Neg) Urine Barbiturates Neg (Neg) Ur Phencyclidine (PCP) Neg (Neg) U Amphetamin/Meth Scrn Neg (Neg) MDMA (Ecstasy) Screen Neg (Neg) U Benzodiazepines Scrn Neg (Neg) Ur Cocaine Metabolite Neg (Neg) U Marijuana (THC) Screen Neg (Neg) Ethyl Alcohol mg/dL 20.0 H (0-3) mg/dl COVID-19 Eval Order SARS-CoV-2 (PCR) (Negative) Influenza Type A (PCR) (Neg) Influenza Type B (PCR) (Neg) RSV (RT-PCR) (Neg) 01/30/21 01/30/21 01/30/21 Range/Units 21:24 21:40 21:40 WBC (4.8-10.8) K/uL RBC (4.7-6.1) M/uL Hgb (14.0-18.0) g/dL Hct (42-52) % MCV (80-100) fL MCH (25-34) pg MCHC (32-36) g/dL RDW Std Deviation (36.4-46.3) fL RDW Coeff of Debo (11.5-14.5) % Plt Count (130-400) K/uL MPV (7.4-10.4) fL Immature Gran % (Auto) % Neut % (Auto) % Lymph % (Auto) % [place] % (Auto) % Eos % (Auto) % Baso % (Auto) % Neut # (Auto) (1.4-6.5) K/uL Lymph # (Auto) (1.2-3.4) K/uL [place] # (Auto) (0.11-0.59) K/uL Eos # (Auto) (0-0.5) K/uL Baso # (Auto) (0-0.2) K/uL Immature Gran # (Auto) (0.00-0.02) K/uL Echinocytes PT (9.0-12.0) Seconds INR (0.9-1.1) APTT (21.0-31.0) Seconds PTT Ratio VBG pH (7.36-7.41) VBG pCO2 (38-50) mmHg VBG pO2 mmHg VBG HCO3 mmol/L VBG O2 Saturation % VBG Base Excess mEq/L Barometric Pressure mm/Hg Sodium (136-145) mmol/L Potassium (3.5-5.1) mmol/L Chloride (98-107) mmol/L Carbon Dioxide (21-32) mmol/L Anion Gap (3-11) BUN (7-18) mg/dl Creatinine (0.6-1.4) mg/dl Est Cr Clr Drug Dosing ml/min Est GFR ( Amer) Est GFR (Non-Af Amer) BUN/Creatinine Ratio (10-20) Glucose (70-99) mg/dl Lactate 2.5 H* (0.4-2.0) mmol/L Calcium (8.5-10.1) mg/dl Total Bilirubin (0.2-1) mg/dl Direct Bilirubin (0-0.2) mg/dl AST (15-37) U/L ALT (12-78) U/L Alkaline Phosphatase (45-117) U/L Troponin I (0-0.045) ng/ml Total Protein (6.4-8.2) gm/dl Albumin (3.4-5.0) gm/dl Lipase (73-393) U/L Procalcitonin (0-0.5) ng/ml Prolactin ng/ml Urine Opiates Screen (Neg) Ur Methadone, Qual (Neg) Urine Barbiturates (Neg) Ur Phencyclidine (PCP) (Neg) U Amphetamin/Meth Scrn (Neg) MDMA (Ecstasy) Screen (Neg) U Benzodiazepines Scrn (Neg) Ur Cocaine Metabolite (Neg) U Marijuana (THC) Screen (Neg) Ethyl Alcohol mg/dL (0-3) mg/dl COVID-19 Eval [address] CovFluRsv at [facility] SARS-CoV-2 (PCR) NEGATIVE (Negative) Influenza Type A (PCR) Negative (Neg) Influenza Type B (PCR) Negative (Neg) RSV (RT-PCR) Negative (Neg) 01/31/21 Range/Units 01:45 WBC (4.8-10.8) K/uL RBC (4.7-6.1) M/uL Hgb (14.0-18.0) g/dL Hct (42-52) % MCV (80-100) fL MCH (25-34) pg MCHC (32-36) g/dL RDW Std Deviation (36.4-46.3) fL RDW Coeff of Debo (11.5-14.5) % Plt Count (130-400) K/uL MPV (7.4-10.4) fL Immature Gran % (Auto) % Neut % (Auto) % Lymph % (Auto) % [place] % (Auto) % Eos % (Auto) % Baso % (Auto) % Neut # (Auto) (1.4-6.5) K/uL Lymph # (Auto) (1.2-3.4) K/uL [place] # (Auto) (0.11-0.59) K/uL Eos # (Auto) (0-0.5) K/uL Baso # (Auto) (0-0.2) K/uL Immature Gran # (Auto) (0.00-0.02) K/uL Echinocytes PT (9.0-12.0) Seconds INR (0.9-1.1) APTT (21.0-31.0) Seconds PTT Ratio VBG pH (7.36-7.41) VBG pCO2 (38-50) mmHg VBG pO2 mmHg VBG HCO3 mmol/L VBG O2 Saturation % VBG Base Excess mEq/L Barometric Pressure mm/Hg Sodium (136-145) mmol/L Potassium (3.5-5.1) mmol/L Chloride (98-107) mmol/L Carbon Dioxide (21-32) mmol/L Anion Gap (3-11) BUN (7-18) mg/dl Creatinine (0.6-1.4) mg/dl Est Cr Clr Drug Dosing ml/min Est GFR ( Amer) Est GFR (Non-Af Amer) BUN/Creatinine Ratio (10-20) Glucose (70-99) mg/dl Lactate (0.4-2.0) mmol/L Calcium (8.5-10.1) mg/dl Total Bilirubin (0.2-1) mg/dl Direct Bilirubin (0-0.2) mg/dl AST (15-37) U/L ALT (12-78) U/L Alkaline Phosphatase (45-117) U/L Troponin I < 0.015 (0-0.045) ng/ml Total Protein (6.4-8.2) gm/dl Albumin (3.4-5.0) gm/dl Lipase (73-393) U/L Procalcitonin (0-0.5) ng/ml Prolactin ng/ml Urine Opiates Screen (Neg) Ur Methadone, Qual (Neg) Urine Barbiturates (Neg) Ur Phencyclidine (PCP) (Neg) U Amphetamin/Meth Scrn (Neg) MDMA (Ecstasy) Screen (Neg) U Benzodiazepines Scrn (Neg) Ur Cocaine Metabolite (Neg) U Marijuana (THC) Screen (Neg) Ethyl Alcohol mg/dL (0-3) mg/dl COVID-19 Eval Order SARS-CoV-2 (PCR) (Negative) Influenza Type A (PCR) (Neg) Influenza Type B (PCR) (Neg) RSV (RT-PCR) (Neg) Supervising Physician Co-Signing Physician Notes Patient seen and examined, chart reviewed, case discussed with Dr. Ramirez and I agree with his assessment and plan as documented above. 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 Records are available through [facility] [facility] system. Patient had been following with Neurology with serial imaging which was unremarkable - he no longer follows with them. Event as above - possible syncope followed by episode of hypotension which resolved with IVF Patient denies history of focal neurological complaints, diplopia, urinary retention etc. Uncertain if he had LP as part of workup in the past Exam unremarkable. No neurological deficits Labs and images reviewed EKG with non-specific ST changes in inferior/lateral leads Assessment/Plan ?syncope vs seizure-like activity vs demyelination as patient presented similarly in past -MRI -Echo and carotid duplex -Neurology consult appreciated -Remainder of plan as above Resident Activity Tracking Resident Involvement: Resident Care Provided Care Provided: Adult Hospital Medicine (1) CHI (closed head injury) Encounter type: initial encounter Qualified Code(s): S09.90XA - Unspecified injury of head, initial encounter (2) Syncope Syncope type: unspecified Qualified Code(s): R55 - Syncope and collapse
[2021-01-30 22:35] LABS: Influenza A virus by PCR Negative (Neg); Influenza B virus by PCR Negative (Neg); RSV by PCR Negative (Neg); SARS CoV2 RNA(COVID-19) InHosp NEGATIVE (Negative)
[2021-01-31] MEDS ORDERED: ACETAMINOPHEN 325 MG TAB PO PRN (01:15)
[2021-01-31] MEDS ORDERED: POLYETHYLENE (MIRALAX) 17 GM PACK PO PRN (01:15)
--- NOTE | 2021-01-31 02:32 | Billing Data ---
Date of Service January 30, 2021 Coding Level of Care Code 22433 Initial Inpt Care Lvl 2
[2021-01-31] MEDS ORDERED: LORazepam 0.5 MG TAB PO STA (03:53)
[2021-01-31] MEDS ORDERED: GADOBUTROL 65ML VIAL IV ONE (04:38)
--- NOTE | 2021-01-31 06:59 | Ultrasound Report ---
ULTRASOUND OF THE CAROTID ARTERIES CLINICAL HISTORY: syncope, etiology unknown COMPARISON STUDY: None. TECHNIQUE: Real-time, grayscale, and color Doppler sonography of the carotid arteries was performed. Imaging reviewed in the transverse and longitudinal planes. NASCET criteria was utilized for stenosis calcification. FINDINGS: There is minimal atherosclerotic plaque present . The peak systolic velocity within the right internal carotid artery is 122 cm/sec. The systolic velocity ratio of right internal to common carotid artery is 1. The peak systolic velocity within the left internal carotid artery is 94 cm/sec. The systolic velocity ratio left internal to common carotid artery is 0.9. Antegrade flow is seen in the vertebral arteries. The external carotid arteries are patent. Blood pressure in the right arm measured 145 mm/Hg. Blood pressure in the left arm measured 126 mm/H g. IMPRESSION: 1. No evidence of hemodynamically significant carotid stenosis. ACT 112: Negative or not required by law. Electronically signed by: Issac Galloway M.D. 01/31/2021 6:58 AM
--- NOTE | 2021-01-31 07:50 | Magnetic Resonance Report ---
MR brain MS wo/w con HISTORY: 60 years-old Male syncope- known h/o demyelinating lesions acute syncope COMPARISON: Head CT 01/30/2021 TECHNIQUE: Multiplanar multisequence MRI of the brain was obtained both with and without the use of 9 .4 mL Gadavist FINDINGS: Information Technology Audit Manager localizer images demonstrate no gross extracranial abnormality. No restricted diffusion to sugg est acute or subacute infarct. No pathologic blooming artifact. No acute intracranial hemorrhage, mid line shift, abnormal extra-axial collection, hydrocephalus or intracranial mass. Cerebral venous sinu ses and major arterial flow voids are patent. Trace mastoid effusions. Minimal mucosal thickening of the ethmoid air cells. The skull, orbits and soft tissues are unremarkable. Mild scattered T2/flair h yperintense foci are noted within the subcortical and periventricular white matter of the cerebral he mispheres. No infratentorial lesions are identified. The brainstem and imaged cervical spinal cord is unremarkable. No abnormal intra-axial or extra-axial enhancement. IMPRESSION: 1. No acute intracranial abnormality. 2. Mild scattered T2 hyperintense foci within the subcortical and periventricular white matter likely correlates with the patient's reportedly known demyelinating disease. 3. No abnormal enhancement. ACT 112: Negative or not required by law. The above report was generated using voice recognition software. It may contain grammatical, syntax o r spelling errors. Electronically signed by: Ronak Delcid M.D. 01/31/2021 7:48 AM
[2021-01-31 08:41] LABS: Cortisol AM 20.05 mcg/dl (4.3-22.4)
--- NOTE | 2021-01-31 08:57 | XCELERA ---
[id number] \\[id number]
[2021-01-31] MEDS ORDERED: MULTIVITAMIN TAB PO SCH (09:00)
[2021-01-31] MEDS ORDERED: PSYLLIUM 58.6% POWDER PACKET PO SCH (09:00)
[2021-01-31 09:20] LABS: Act87 Hepatitis C IgG Screen Neg (Neg)
--- NOTE | 2021-01-31 10:05 | Electrocardiogram Report ---
Test Reason : Blood Pressure : / mmHG Vent. Rate : 077 BPM Atrial Rate : 077 BPM P-R Int : 174 ms QRS Dur : 094 ms QT Int : 414 ms P-R-T Axes : 058 061 179 degrees QTc Int : 468 ms Poor data quality, interpretation may be adversely affected Normal sinus rhythm with sinus arrhythmia Diffuse Nonspecific ST and T wave abnormality Abnormal ECG No previous ECGs available Confirmed by Elroy Lou ([id number]) on 01/31/2021 10:05:07 AM Referred By: REFERRED SELF Confirmed By:Elroy Lou
[2021-01-31 10:06] LABS: Calcium 8.3 mg/dl (8.5-10.1); Creatinine Clr Calc Pharmacy 95.9 ml/min; Est GFR (African American) 99.9; Est GFR (Non-African American) 86.2; Potassium 4.4 mmol/L (3.5-5.1)
--- NOTE | 2021-01-31 10:07 | Neurology Consultation ---
Date of Consultation January 31, 2021 Assessment & Plan (1) Syncope: (2) CHI (closed head injury): (3) Demyelinating lesion: Patient had an episode of syncope associated with marked hypotension. given his symptoms and the symptoms surrounding the episode of his previous syncope in 2014, we wonder if he has had a reaction to certain foods as each time he ate something he was not use to eating. With the shortness of breath and profound hypotension this may have been a type of anaphylaxis. Otherwise, he does not have symptoms of orthostasis or vagovagal syncope in the past. I have a low index of suspicion for a seizure and he has not had any new neurologic event, such as a stroke. He did hit his head during the syncopal event but he does not currently have symptoms of concussion today. He does have mild, nonspecific headache Patient has multiple white matter lesions consistent with demyelination. Their appearance does look like multiple sclerosis but he has no clinical history to suggest this diagnosis. He was evaluated thoroughly at [facility] several years ago and his diagnosis is radiographic isolated syndrome and no need for disease modifying therapy ( unless he has new lesions or new clinical events ). Recommendations: 1. I see no need for additional neurologic testing or treatment at this time. 2. follow up with Cardiology and/or Allergy 3. please contact me if I can be of further assistance for this case Overall, I spent a total of 60 minutes with this case including review of records, review of MRI films, direct evaluation the patient at bedside, and discussion of the case with the patient at bedside, and Dr. Shukla, including differential diagnosis and treatment options. History of Present Illness Reason for Consultation: Patient is a 60-year-old, who was asked to see at the request of Dr. Ramirez, for neurologic consultation regarding syncope and abnormal MRI of the brain. Requesting Physician: Dr. Ramirez Attending Physician: Ricardo Shukla History of Present Illness Patient has a history of syncopal episode in 2014 while he was eating a meal. At that time he felt ill and somewhat short of breath and went outside to get some fresh air and ended up found on the ground having passed out. He underwent a large Neuro and cardiac workup apparently and an EEG was apparently normal. He had no cardiac issues. MRI of the brain showed multiple (7-8) white matter lesions that could be consistent with demyelinating disease. He went to [facility] and hope was told that he probably did not have active multiple sclerosis. A follow-up MRI in [address] Contreras felt that he had "radiographic isolated syndrome" and did not recommend a disease modifying agent. He had multiple laboratory studies to rule out MS mimics but these lab studies were unremarkable. The patient has had no new neurologic issue since. Patient tells me that he has never had any episodes of loss of vision, weakness or numbness, or balance. Around 1829 yesterday January 30 he was out celebrating and eating with family in a restaurant when he suddenly "did not feel well". He felt like he could not get air and stood up to ask the senior partner for water. He then immediately lost consciousness with a syncopal event and hit his forehead on the table. He did not have any stiffening or jerking on the ground but he did have fecal incontinence. There was no urinary incontinence. When he became conscious again he had a slight headache and had trouble breathing. With the EMS arrived his blood pressure was in the systolic 50-70 range. He was given fluids and arrived at the emergency room at 1928, with a blood pressure of 124/64 ( he already received fluids), temperature 36.2, pulse 92, respiratory rate 18, O2 saturation 92%. His neurologic examination was unremarkable emergency room and had an NIH stroke scale of 0 and a GCS of 15. CBC and Chem profile were unremarkable. Alcohol level was 20. tox screen was negative. CT scan of the head was unremarkable. CT angiography of the chest and pelvis were unremarkable with no vessel anomalies or dissections. Patient did have some abdominal pain. MRI of the brain showed 7-8 white matter lesions, some perpendicular to the ventricles, without edema. There were no acute lesions. These lesions looked circumscribed and old. Echocardiogram was unremarkable as was a carotid ultrasound. Blood pressure this morning is 120/86 and he is in normal sinus rhythm in the 80s. He feels back to his baseline and has no symptoms currently. Allergies Allergy/AdvReac Type Severity Reaction Status Date / Time No Known Allergies Allergy Verified 01/30/21 20:01 Home Medications Medication Instructions Recorded Confirmed Type multivitamin 1 tab PO DAILY 01/30/21 01/30/21 History psyllium husk [Metamucil] 1 tsp PO DAILY 01/30/21 01/30/21 History Patient History Medical History Demyelinating lesion His last MRI in 2017 via [facility] [place] did demonstrate "multiple ovoid shaped FLAIR hyperintense white matter lesions throughout the supratentorial brain, predominantly involving the callosal/pericallosal, juxtacortical, and periventricular regions. The lesions are unchanged in size and number since 07/09/2015. No abnormal enhancement. No restricted diffusion. No intraparenchymal hemorrhage." Impression by neurologist was 7-8 of these in total. 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 Feels Safe at Home: Yes Safety Concerns: Feels Safe At This Time Assistive Devices: None Review of Systems Constitutional: no fever, no fatigue and no weakness Eyes: no diplopia, no eye pain and no worsening vision Ear, Nose, Mouth, Throat: no ear pain, no tinnitus, no hearing loss, no dizziness, no hoarseness and no dysphagia Respiratory: no cough and no dyspnea Cardiovascular: no chest pain, no palpitations and no lightheadedness Gastrointestinal: no abdominal pain, no nausea and no vomiting Genitourinary: no dysuria and no urinary incontinence Musculoskeletal: no back pain, no neck pain, no radicular pain, no joint pain and no myalgia Integumentary: no rash and no lesions Neurologic: + headache(s); no gait abnormality, no localized weakness, no generalized weakness, no tingling, no numbness, no tremor(s), no abnormal movements, no abnormal speech, no confusion and no memory loss Psychiatric: no depression, no irritability, no anxiety, no difficulty concentrating, no confusion and no hallucinations Endocrine: no fatigue and no flushing Hematologic / Lymphatic: no easy bleeding and no easy bruising Allergy / Immunological: no urticaria and no problem reported Exam (Neuro) Physical Exam: The patient is right-handed. The patient is awake, alert, and attentive. Speech is normal without any aphasia or dysarthria. he can name objects, repeat phrases, and has normal spontaneous speech. Mentation and thought processes are intact, with orientation to person, place and time, and normal fund of knowledge. Attention and concentration are normal. Mood and affect are normal and appropriate. General appearance and grooming are normal. Short and long-term memory are intact. The discs are sharp with positive venous pulsations bilaterally. There are no exudates, hemorrhages, or blood vessel changes seen. Pupils are 4 mm bilaterally and reactive to light. Extraocular eye muscles are intact without nystagmus. Visual acuity and visual jones seem normal grossly to confrontation. There are no deficits to sensation in the face in all 3 distributions of the fifth cranial nerve bilaterally. Corneal reflexes are positive bilaterally. Facial strength and symmetry was normal bilaterally. Hearing seems normal to w hisper and finger rub bilaterally. Palate moves well without asymmetry. There is normal sternocleidomastoid and trapezius (shoulder shrug) strength bilaterally. Tongue is midline with good strength bilaterally. Neck has a full range of motion without discomfort. There are no cervical bruits bilaterally. There are no cranial or ocular bruits. Heart is without murmur. There is a regular rhythm and rate. Cervical, thoracic, and lumbar spine are nontender to palpation. Gait is narrow based, with good arm swing, turns, and stance. Balance is normal eyes open or closed. The patient can tandem walk without difficulty. The patient can heal and toe walk normally. With outstretched arms there is no drift. There are no resting, postural, or action tremors. There is no ataxia with finger to nose testing. There is good facility in the hands. No other abnormal involuntary movements are noted. Motor strength is 5/5 diffusely in the arms bilaterally including deltoids, biceps, triceps, brachioradialis, wrist flexors and extensors, treatment specialist, and intrinsic hand muscles. Motor strength is 5/5 diffusely in the legs bilaterally including hip flexors, quadriceps, hamstrings, gastrocnemius, tibialis anterior, tibialis posterior, and Peroneii muscles. Toe extensors are normal and there is good bulk in the extensor digitorum brevis muscles bilaterally. The limbs have good tone without rigidity or spasticity. There is no atrophy noted in the muscles. Muscle bulk is normal, there is no tenderness to palpation, no myotonia to percussion, and no fasciculations seen. Sensory examination is intact to touch and pin throughout all 4 limbs diffusely, except he has some dysesthesias in the balls of his feet and toes bilaterally. Reflexes are 2/4 in the biceps, triceps, brachioradialis, quadriceps, and Achilles tendons bilaterally. There is no clonus bilaterally. Toes are downgoing with plantar stimulation bilaterally. Peripheral pulses are present and of normal quality distally in all 4 limbs. There is no peripheral edema noted in the limbs. Results & Data ([facility]) Vital Signs (Past 12 Hours) Vital Signs Temp Pulse Pulse Resp BP BP Pulse Ox 01/31/21 09:06 86 120/86 01/31/21 07:27 36.9 C 65 16 110/70 95 01/31/21 07:00 72 01/31/21 03:17 36.8 C 81 18 104/68 93 01/31/21 02:32 75 01/31/21 01:40 37 C 90 20 123/75 94 01/31/21 00:01 92 H 18 92 01/31/21 00:00 92 H 18 120/66 93 01/30/21 23:31 99 H 15 94 01/30/21 23:30 94 H 16 126/74 93 01/30/21 23:20 105 H 16 135/74 93 01/30/21 23:19 115 H 13 134/74 93 01/30/21 23:15 96 H 15 136/83 95 01/30/21 23:00 96 H 16 141/77 H 95 01/30/21 22:30 97 H 15 143/82 H 95 01/30/21 22:15 93 H 18 129/77 93 01/30/21 22:00 90 18 136/79 94 PG Care Time/CCT Total # of Minutes Spent Total Time Spent with Patient: Total time spent is greater than 50% in coordination of care (as documented) at patient's floor/unit and/or counseling patient: Coding Level of Care Code 58103 Inpt Consult Level 5 Diagnoses Syncope R55 Syncope type: unspecified CHI (closed head injury) S09.90XA Encounter type: initial encounter Demyelinating lesion G37.9 Time Spent (min) 60 (1) Syncope Syncope type: unspecified Qualified Code(s): R55 - Syncope and collapse (2) CHI (closed head injury) Encounter type: initial encounter Qualified Code(s): S09.90XA - Unspecified injury of head, initial encounter
[2021-01-31 11:55] LABS: iSTAT Creatinine 1.2 mg/dl (0.6-1.3); iSTAT Hemoglobin 13.9 g/dl (14.0-18.0); iSTAT Ionized Calcium 1.15 mmol/l (1.12-1.32); iSTAT Potassium 3.2 mmol/L (3.3-5.0)
--- NOTE | 2021-01-31 14:47 | Discharge Summary ---
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 Per patient and report, he was in his normal health up until this event. At the graduation libertarian, he had approximately 2 beers and was eating a steak sandwich. At 1 point, he reported "not feeling right, and "and noted becoming very thirsty and asking his gas examiner for a glass of water. He then passed out. Hit his head on the way down. When he did begin "coming out of it", notes that he did say that he was having trouble breathing. Although he is not completely able to recollect the story, he denies that there is any chest pain around this time. similar does not remember him saying anything about a pressure in his chest or pain. There is no evidence of generalized shaking or seizure-like activity. There is no tongue biting or loss of bowel or bladder control. Patient notes that there was nothing out of the ordinary that occurred today. He attended his son's graduation earlier in the afternoon. He continued to eat and consume liquids as he normally does. He denies any illness like symptoms occurring recently. Denies any new medications or use of illicit drugs. Upon EMS arrival, he he was noted to be more responsive, but with systolics in the 50s. Fluid was administered in route. In the ED, patient was found to be hypotensive to the systolic range of 70s over 50s. He was noted to have a hypokalemia to 3.2, but otherwise no significant electrolyte abnormalities. Ethyl alcohol level of 20. He was noted to have a lactate of 2.5 in the setting of this hypotension. No signs of anemia. Head CT and chest CTA without acute processes or vascular insult. Abdominal CTA similarly without acute processes. After an additional 2-3 fluid boluses, his blood pressures returned to the 120/80 range. Of note, patient has followed with [facility] neurology in the past. He was noted to have a syncopal event in December 2014, where after a brain MRI was obtained; his neurologist remarked that there were 7-8 demyelinating lesions concerning for MS. 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 His last MRI in 2017 did demonstrate "multiple ovoid shaped FLAIR hyperintense white matter lesions throughout the supratentorial brain, predominantly involving the callosal/pericallosal, juxtacortical, and periventricular regions. The lesions are unchanged in size and number since 07/09/2015. No abnormal enhancement. No restricted diffusion. No intraparenchymal hemorrhage." Further, patient's does report that when they lived in [place], he unde rwent an extensive cardiac/neurologic work-up for evaluation of the syncopeincluding EEG, cardiac catheterization, and more, which she recollects were negative. Over the last several years, and he denies any major changes in his health. Notes that he has begun using readers over the past year, but denies any change in color perception or acuity. He denies any sudden periods of weakness in his arms or his legs, or focally from a general perspective. He does endorse bilateral numbness on the heels of his feet which has been there for over 2 years; it is most present when walking around. He denies any significant family history of neurologic disease. He did note that his brother recently from a stroke at the age of 68. He knows that both of his parents had heart disease. Denies any rheumatologic diseases in the family, such as lupus, rheumatoid arthritis, IBD. Principal Diagnosis syncope; cannot rule out arrhythmia as cause Discharge Exam Constitutional well developed and well nourished; no acute distress and no altered mental status Eyes PERRL ENMT external ear and nose normal, oropharynx normal Respiratory normal respiratory effort, lungs clear to auscultation Cardiovascular Rate/Rhythm: regular rate and regular rhythm Heart Sounds: normal S1 and normal S2; no murmur Vessels: posterior tibial pulses present and dorsalis pedis pulses present; no JVD Extremities: no edema Gastrointestinal (Abdomen) normal bowel sounds, soft, nontender, no hepatosplenomegaly Neurologic deep tendon reflexes 2+ bilaterally and moves all extremities; no focal motor deficits Psychiatric A+Ox3, euthymic affect Discharge Data Allergies Allergy/AdvReac Type Severity Reaction Status Date / Time No Known Allergies Allergy Verified 01/30/21 20:01 Consultations [facility] Neurology - Abisai Alfonso MD [facility]iology - Andrew Mcpherson MD Procedures Performed Echocardiogram - * EF 60-65% * no regional wall motion abnormalities * normal valve function * mild LVH Ordered Studies Abdomen/Pelvis CTA 01/30/21 19:26 CT ANGIOGRAPHY OF THE ABDOMEN AND PELVIS CLINICAL HISTORY: Abdominal pain. Syncope. Evaluate for dissection. COMPARISON STUDY: No previous studies for comparison. TECHNIQUE: Helical axial images of the abdomen and pelvis were obtained during arterial phase following intravenous injection of 124 cc Optiray 320 IV. Sagittal and coronal reconstructions were viewed as well as maximal intensity projections on an independent 3-D workstation. Automated exposure control was utilized for the study. A dose lowering technique was utilized adhering to the principles of ALARA. FINDINGS: No pneumatosis, free air or portal venous gas is present. Stomach is distended with ingested contents. Arterial phase images of the liver, spleen, adrenal glands, kidneys and pancreas are unremarkable. There is no biliary or pancreatic ductal dilatation. There is no peripancreatic or pericholecystic infiltration. There is no hydronephrosis. The appendix is normal. There is a moderate amount of stool within the colon and rectum. There is no evidence for a bowel obstruction. No ascites is present. There is no lymphadenopathy. The caliber of the abdominal aorta is normal. There is minimal atherosclerotic plaque of the abdominal aorta as well as the branch vessels. There is no dissection. The branch vessels are patent. Small fat-containing bilateral inguinal hernias are present. IMPRESSION: 1. Normal caliber abdominal aorta. Mild atherosclerotic plaque. No dissection. Patent vessels. 2. No acute process within the abdomen or pelvis on arterial phase exam. 3. Moderate amount of stool within the colon and rectum. No bowel obstruction. No bowel wall thickening. 4. Distended stomach containing ingested contents. ACT 112: Negative or not required by law. Electronically signed by: Harinder Gaviria M.D. 01/30/2021 8:18 PM Chest CTA 01/30/21 19:26 CT ANGIOGRAPHY OF THE CHEST DISSECTION PROTOCOL CLINICAL HISTORY: Syncope. Evaluate for dissection. COMPARISON STUDY: No previous studies for comparison. TECHNIQUE: Before and following the IV administration of 124 mL of Optiray, helical axial images of the chest were obtained. Maximal intensity projections and sagittal and coronal reformats were viewed on an independent 3D workstation. IV contrast was administered without complication. Automated exposure control was utilized for the study. A dose lowering technique was utilized adhering to the principles of ALARA. CT DOSE: 3266.10 mGy.cm FINDINGS: Caliber of the thoracic aorta is normal. There is no intramural hematoma or thoracic aortic dissection. Cardiac size is at the upper limits of normal. No enlarged thoracic lymph nodes are noted. There are several calcified mediastinal and right hilar lymph nodes. No central pulmonary embolus is noted. There is no consolidation to suggest pneumonia. No pneumothorax or pleural effusion is noted. Abdomen and pelvis will be reported separately. IMPRESSION: 1. No thoracic aortic dissection. 2. No acute process within the chest. ACT 112: Negative or not required by law. Electronically signed by: Harinder Gaviria M.D. 01/30/2021 8:[address] 01/30/21 19:27 CT OF THE HEAD WITHOUT CONTRAST CLINICAL HISTORY: syncope hit head COMPARISON STUDY: No previous studies for comparison. TECHNIQUE: Helical axial images of the head were obtained without IV contrast. Automated exposure control was utilized for the study. A dose lowering technique was utilized adhering to the principles of ALARA. FINDINGS: No acute intracranial hemorrhage, midline shift or mass effect is present. The ventricular system is unremarkable. The basal cisterns are patent. No extra-axial collections are present. There are no findings to suggest acute dural sinus thrombosis or acute territorial infarct. No significant calvarial abnormalities are present. Mild ethmoid sinus mucosal thickening is noted. There is a probable incomplete arch of C1, incompletely imaged on this exam. IMPRESSION: 1. No acute intracranial findings. 2. No calvarial fracture. ACT 112: Negative or not required by law. Electronically signed by: Harinder Gaviria M.D. 01/30/2021 8:03 PM Brain MRI 01/31/21 01:15 MR brain MS wo/w con HISTORY: 60 years-old Male syncope- known h/o demyelinating lesions acute syncope COMPARISON: Head CT 01/30/2021 TECHNIQUE: Multiplanar multisequence MRI of the brain was obtained both with and without the use of 9.4 mL Gadavist FINDINGS: Tip Stitcher localizer images demonstrate no gross extracranial abnormality. No restricted diffusion to suggest acute or subacute infarct. No pathologic blooming artifact. No acute intracranial hemorrhage, midline shift, abnormal extra-axial collection, hydrocephalus or intracranial mass. Cerebral venous sinuses and major arterial flow voids are patent. Trace mastoid effusions. Minimal mucosal thickening of the ethmoid air cells. The skull, orbits and soft tissues are unremarkable. Mild scattered T2/flair hyperintense foci are noted within the subcortical and periventricular white matter of the cerebral hemispheres. No infratentorial lesions are identified. The brainstem and imaged cervical spinal cord is unremarkable. No abnormal intra-axial or extra-axial enhancement. IMPRESSION: 1. No acute intracranial abnormality. 2. Mild scattered T2 hyperintense foci within the subcortical and periventricular white matter likely correlates with the patient's reportedly known demyelinating disease. 3. No abnormal enhancement. ACT 112: Negative or not required by law. The above report was generated using voice recognition software. It may contain grammatical, syntax or spelling errors. Electronically signed by: Ronak Delcid M.D. 01/31/2021 7:48 AM Carotid Doppler Study 01/31/21 01:15 ULTRASOUND OF THE CAROTID ARTERIES CLINICAL HISTORY: syncope, etiology unknown COMPARISON STUDY: None. TECHNIQUE: Real-time, grayscale, and color Doppler sonography of the carotid arteries was performed. Imaging reviewed in the transverse and longitudinal planes. NASCET criteria was utilized for stenosis calcification. FINDINGS: There is minimal atherosclerotic plaque present . The peak systolic velocity within the right internal carotid artery is 122 cm/sec. The systolic velocity ratio of right internal to common carotid artery is 1. The peak systolic velocity within the left internal carotid artery is 94 cm/sec. The systolic velocity ratio left internal to common carotid artery is 0.9. Antegrade flow is seen in the vertebral arteries. The external carotid arteries are patent. Blood pressure in the right arm measured 145 mm/Hg. Blood pressure in the left arm measured 126 mm/Hg. IMPRESSION: 1. No evidence of hemodynamically significant carotid stenosis. ACT 112: Negative or not required by law. Electronically signed by: Issac Galloway M.D. 01/31/2021 6:58 AM Hospital Course (1) Syncope: By report the patient's blood pressure and HR were very low at time of EMS arrival to the scene where he had his syncopal episode. Unfortunately we do not have a record to substantiate this as his vitals were normal by the time he was in the ER at [facility]. [id number], the reported severely low BP and HR led to multiple fluid boluses en route to the hospital followed by additional fluid in our ER. He had a mildly elevated lactate at time of ER presentation consistent with hypoperfusion. Certainly a severe vasovagal episode could have led to an extreme drop in BP & HR leading to syncope as he experienced. However, arrhythmia could also have caused his severe syncopal episode. Extensive work-up during his brief admission did not show any other alternative explanation. MRI brain showed multiple demyelinating lesions but, by report, these are chronic. Additionally these lesions seen on MRI brain should not lead to syncope. Telemetry did not show pauses, AV block, or arrhythmia. Orthostatic BPs were normal. The patient did not have further dizziness, lightheadedness, vertigo, presyncope or syncope during his brief stay. He was seen by both neurology and electrophysiology/cardiology. Neurology did not see a primary neurological cause for his syncope. Seizure was NOT suspected. Cardiology was very concerned that arrhythmia could have caused this event and also his event in 2014. For that reason LOOP RECORDER IMPLANTATION was recommended. Since the patient was from out of [facility] ([place]) and would only be in [facility] the patient declined to have a loop recorder done at [facility]. Instead he reported he would follow-up with cardiology/EP in [place] upon his return there. He was advised NO DRIVING and NO HEAVY EXERTIONAL ACTIVITIES until he saw his PCP back in [place]. He was asked to maintain good hydration upon discharge. (2) Demyelinating lesion: Seen on MRI brain - see full report in this document. These lesions are old, and he has been worked up in the past by [facility]. He does not carry a diagnosis of multiple sclerosis despite these lesions. Etiology of the lesions is uncertain. Recommend f/u with PCP upon return to [place], [place] for the abnormal brain MRI. At baseline the patient denies any neurological symptoms. (3) HLD (hyperlipidemia): History of such, but does not take prescription medications for this. Total Time Total Time Spent Total Time Spent (In Minutes): 45 Total Time Includes: Examination of the Patient, Discharge Planning, Medication Reconciliation and Communication With Other Providers Discharge Plan Discharge Items Patient Disposition: Home - Self-Care Reason For Visit: SYNCOPE Discharge Diagnosis: Syncope - also known as "passing out spell". Exact cause uncertain. Neurology and cardiology saw you in consult. Cardiology (electrophysiology) is recommending loop recorder implantation. Activity: Per Instructions section Driving/Machine Use: No driving until cleared by your family doctor Non-emergency contact: Primary Care Provider Call non-emergency contact if: you have any medication questions and your symptoms worsen Follow-up/Referrals: German Armenta, DO [Primary Care Provider] - (please see Dr Armenta in 3-4 days for recheck and to obtain cardiology/electrophysiology referral in [place] ) Diet: Regular Addtl Attending Provider Instructions: Mr Walker, You were hospitalized after suffering about a 5-minute long episode of syncope (passing out spell). At time of presentation to the ER at [facility] your blood pressure was severely low, requiring multiple bags of IV fluids to fix it. You underwent a very large work-up to determine the cause of your event. Results - 1. echocardiogram (heart ultrasound) - normal 2. MRI brain - NO stroke or bleeding; there are multiple lesions in the brain that apparently have been present in the past. You will need follow-up for this to ensure you do not have any neurological condition like multiple sclerosis, etc. However, nothing was found in the brain that would cause passing out. 3. carotid ultrasound - normal, no blocked arteries 4. labs largely normal (although you had an abundance of lymphocytes, a type of white cell that often rises with viral infections) 5. COVID negative 6. CT scans of the chest, abdomen, and pelvis were all normal 7. telemetry (heart monitoring) was normal 8. blood work for heart attack was NEGATIVE Dr Andrew Mcpherson, [facility] cardiology/electrophysiology, is recommending that you have a "loop recorder" placed in [place]. This is very tiny device that implants under the skin and monitors your heart [id number]. This may detect a heart rhythm problem which could have caused your event yesterday or the event 5-6 years ago. Please ask your family doctor for a referral to cardiology for this. Until you see your family doctor please - * no driving * no operating heavy machinery * avoid going to the gym * drink plenty of fluids * light activities only Follow-up - * see your family doctor THIS WEEK to obtain cardiology referral * see a neurologist back home to ensure the MRI brain is unchanged from prior imaging Return to any hospital if - * you have recurrent syncope * you have severe dizziness * you have chest pains or shortness of breath * you feel your heart racing/palpitating * any other concerns Please stay well! -Dr Shukla Pending Studies at Discharge: No Stand-Alone Forms: My [facility], Smoking Cessation Medications and DC Order Prescriptions: Continued multivitamin Tablet 1 tab PO DAILY RF: 0 Metamucil 3.4 gram/5.4 gram Powder 1 tsp PO DAILY RF: 0 Discharge Orders: Discharge Order (Routine); Ordered 01/31/21 Ordered By: Ricardo Odom/Other Patient Handouts: What Is Syncope?, Causes of Syncope, ED Fainting, Uncertain Cause Admission Data Admit Date/Time: 01/30/21 23:49 Attending Provider: Ricardo Shukla Admit Provider: Ashu Ramirez Primary Care Provider: German Armenta Other Providers: Marianne Patel ; Sebastian Alfonso ; Andrew Mcpherson Other Interventions: Discharge Summary Assessment (RN) Last Done: 01/31/21 14:44 Coding Level of Care Code D/C Day Management >30 mins Diagnoses Syncope R55 Syncope type: unspecified Demyelinating lesion G37.9 HLD (hyperlipidemia) E78.5
--- NOTE | 2021-01-31 15:06 | Cardiology Consultation ---
Date of Consultation January 31, 2021 Assessment & Plan (1) Syncope: With initial evaluation there is very little to suggest a cause for his loss of consciousness. It does not appear to be a primary neurologic disorder, it may have been associated with hypotension following the event in the [place] although I am a little bit concerned that there are no low blood pressures documented once he arrived in the emergency room here throughout his stay. Likewise his heart rate seems unremarkable. I think an arrhythmia remains a distinct possibility. There are infrequent arrhythmias that could cause this situation including paroxysmal supraventricular tachycardia, possibly even paroxysmal atrial fibrillation with a very rapid heart rate or sinus arrest or other causes of bradycardia such as intermittent complete heart block. Tachycardia is not always associated with palpitations and his prodrome may have been due to a tachycardia. To me an arrhythmia seems the most likely cause of this event, assuming that we do not have good documentation of vital signs showing an intact rhythm while he was unconscious. Since I do not see that documentation my recommendation is an implantable loop recorder. He has only had 2 episodes by 5 years or more, but perhaps he has less symptomatic episodes that could be picked up by loop recorder which would last at least 3 to 4 years. Occasionally we have to replace loop recorder as before making the diagnosis. At least we could document that his rhythm was not an issue if he has another event. I discussed loop recorder implantation today with him but he has declined. He is going to look into that when he gets back home to [place]. History of Present Illness Reason for Consultation: Loss of consciousness Attending Physician: Ricardo Shukla History of Present Illness This is a 60-year-old from [place] here for graduation. He presents with a second profound syncopal event. The first occurred either in 2014 or 2016 in [place], the circumstances at that time were similar to this event. He was eating at that time, he stood up and lost consciousness and woke up with an ambulance was there. He was therefore unconscious for substantial amount of time. An evaluation was performed with apparently no specific etiology identified. He now presents with a second similar event. He was at a high top table and was eating dinner on January 30, 2021, he got very thirsty and felt unusual and stood up, stood there for some length of time (probably not very long but the timeframe is uncertain) and then lost consciousness and fell to the ground. He did wake up with people surrounding him. He was brought in by ambulance, it is reported that his blood pressure was 50 mmHg in the ambulance and intravenous fluids were administered, however I do not see a low blood pressure in the emergency room, the first blood pressure recorded is 124/64 and all others have been essentially normal except for several that were in the 140 systolic range. There is also report that his stated that he lost consciousness again in route by do not see specific documentation of that. Likewise his heart rate was unremarkable here. Evaluation here has included electrocardiography which shows sinus rhythm and some minor ST-T abnormalities but nothing significant, telemetry monitoring were no arrhythmia has been identified, echocardiography showing mild left ventricular hypertrophy and normal left ventricular systolic function with no wall motion abnormalities and no significant valvular abnormality. CT angiography of the abdomen and pelvis and the chest shows no acute abnormality, a head CT and brain MRI shows a previously known demyelinating disease but no other abnormalities and a carotid Doppler study shows no obstructive disease. At the time my evaluation he was feeling well, he denies any interim symptoms other than the 2 documented. He does not get palpitations, however he had some sort of prodrome leading up to his syncopal events but was not associated with palpitations that he recognized. 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 The lesions are unchanged in size and number since 07/09/2015. No abnormal enhancement. No restricted diffusion. No intraparenchymal hemorrhage." Impression by neurologist was 7-8 of these in total. 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 HEENT: Unremarkable Neck: No jugular venous distention, carotid pulses are normal and equal bilaterally without bruits. Pulmonary: Clear to auscultation bilaterally. Cardiac: Regular rhythm with no murmur, gallop or rub. Abdomen: Soft, nontender with normal bowel sounds. Extremities: No edema. Distal pulses intact. Neurologic: No focal findings. Gait is steady. Skin: No rash, ecchymoses or petechiae. Results & Data ([facility]) Vital Signs (Past 12 Hours) Vital Signs Temp Pulse Pulse Resp BP Pulse Ox 01/31/21 14:44 36.9 C 65 16 129/79 96 01/31/21 11:29 36.9 C 65 16 129/79 96 01/31/21 09:06 86 120/86 01/31/21 07:27 36.9 C 65 16 110/70 95 01/31/21 07:00 72 01/31/21 03:17 36.8 C 81 18 104/68 93 Laboratory Results Cardiac Enzymes 01/30/21 01/31/21 01/31/21 Range/Units 19:20 01:45 07:08 AST 18 (15-37) U/L Troponin I < 0.015 < 0.015 < 0.015 (0-0.045) ng/ml Coagulation 01/30/21 Range/Units 19:20 PT 11.4 (9.0-12.0) Seconds APTT 22.0 (21.0-31.0) Seconds CBC 01/30/21 Range/Units 19:20 WBC 7.33 (4.8-10.8) K/uL RBC 4.80 (4.7-6.1) M/uL Hgb 14.4 (14.0-18.0) g/dL Hct 41.4 L (42-52) % Plt Count 272 (130-400) K/uL Neut # (Auto) 2.96 (1.4-6.5) K/uL Lymph # (Auto) 3.99 H (1.2-3.4) K/uL [place] # (Auto) 0.33 (0.11-0.59) K/uL Eos # (Auto) 0.02 (0-0.5) K/uL Baso # (Auto) 0.01 (0-0.2) K/uL Comprehensive Metabolic Panel 01/30/21 01/31/21 Range/Units 19:20 07:05 Sodium 142 141 (136-145) mmol/L Potassium 3.2 L 4.4 D (3.5-5.1) mmol/L Chloride 109 H 112 H (98-107) mmol/L Carbon Dioxide 25 26 (21-32) mmol/L BUN 19 H 14 (7-18) mg/dl Creatinine 1.14 0.96 (0.6-1.4) mg/dl Glucose 162 H 93 (70-99) mg/dl Calcium 8.6 8.3 L (8.5-10.1) mg/dl Direct Bilirubin < 0.1 (0-0.2) mg/dl AST 18 (15-37) U/L ALT 29 (12-78) U/L Alkaline Phosphatase 68 (45-117) U/L Total Protein 7.2 (6.4-8.2) gm/dl Albumin 3.6 (3.4-5.0) gm/dl Intake and Output 01/31/21 01/31/21 01/31/21 06:59 14:59 22:59 Intake Total 2099 515 / 515 Balance 2099 515 / 515 Intake: Oral 100 / 515 / 515 Other: Weight 95 kg 95 kg Weight Measurement Method Standing Scale Patient Weight 02/01/21 06:59 Weight 95 kg PG Care Time/CCT Total # of Minutes Spent Total Time Spent with Patient: Total time spent is greater than 50% in coordination of care (as documented) at patient's floor/unit and/or counseling patient: Coding Level of Care Code 49248 Office/OBS Consult Lvl 4 Diagnoses Syncope R55 Syncope type: unspecified (1) Syncope Syncope type: unspecified Qualified Code(s): R55 - Syncope and collapse
== END 2021-01-31 15:47 | disposition home or self-care (01) | DRG 312 ==
LOC: ED 19:18 → SUATTDRO 23:49 → 2N 23:49